=== PATIENT | female | born 1955 | race Caucasian/White ===

== ENCOUNTER 2018-03-31 12:35 | Outpatient (CLI) | payer OTHER ==
[~2018-03-31 12:35] MED LIST: ATORVASTATIN CA20 MG PO; BACLOFEN10 MG PO; CAMBIA50 MG PO; FLUOXETINE HCL20 MG PO; LOSARTAN POTAS100 MG PO; NORVASC5 MG PO; TENORMIN50 M1 PO
== END 2018-03-31 12:41 | disposition home or self-care (01) ==
LOC: RAD 12:35
DX: Z01.810 Encounter for preprocedural cardiovascular examination (principal)

== ENCOUNTER → 2018-04-07 | Day surgery (SDC) | payer OTHER | END | disposition home or self-care (01) | LOC: ADM 04-02 15:15 → CIR.AMB 06:07 | DX: M65.331 Trigger finger, right middle finger (principal) ==